=== PATIENT | female | born 1980 | race Two or more races ===

== ENCOUNTER 2020-04-06 08:43 | Emergency (ER) | payer OTHER ==
[~2020-04-06] VITALS: Ht 160 cm; Wt 74.8 kg
[~2020-04-06 08:43] MED LIST: IBUPROFEN800 MG PO
== END 2020-04-06 13:08 | disposition home or self-care (01) ==
LOC: ER 08:43
DX: K52.9 Noninfective gastroenteritis and colitis, unspecified (principal); Z03.818 Encounter for observation for suspected exposure to other biological agents ruled out

== ENCOUNTER 2020-04-19 07:30 | Outpatient (CLI) | payer OTHER | END 2020-04-19 08:10 | disposition home or self-care (01) | LOC: NUCLEAR 07:30 | PROVIDERS: ATTEND Emergency Medicine | DX: K80.20 Calculus of gallbladder without cholecystitis without obstruction (principal) | CPT/HCPCS: 78226; A9537 ==

== ENCOUNTER 2021-04-09 10:59 | Emergency (ER) | payer OTHER ==
[~2021-04-09] VITALS: Ht 160 cm; Wt 71.2 kg
== END 2021-04-09 14:29 | disposition home or self-care (01) ==
LOC: ER 10:59
DX: B34.9 Viral infection, unspecified (principal); Z11.52 Encounter for screening for COVID-19

== ENCOUNTER 2023-05-11 10:33 | Emergency (ER) | payer OTHER ==
[~2023-05-11] VITALS: Ht 160 cm; Wt 70.3 kg
[2023-05-11] MEDS ORDERED: 0.9 % SODIUM CHLORIDE 1,000 ML IV STA (11:13)
[2023-05-11] MEDS ORDERED: ONDANSETRON HCL 2 MG/ML VIAL IV STA (11:15)
[2023-05-11] MEDS ORDERED: FAMOtidine 10 MG/ML (4ML VIAL) IV STA (11:15)
[2023-05-11 11:53] LABS: URINE APPEARANCE Clear; URINE BILIRRUBIN Negative (NEGATIVE); URINE BLOOD Large; URINE COLOR Yellow; URINE GLUCOSE Negative (NEGATIVE); URINE LEUKOCYTE Negative; URINE NITRATE Negative; URINE PROTEIN Negative (NEGATIVE); URINE UROBILINOGEN 0.2 E.U./dl
[2023-05-11 11:54] LABS: URINE BACTERIA 28.9 uL (0.0-1933); URINE RBC 2807.8 uL (0.0-20.8); URINE WBC 2.9 uL (0.0-23.2)
[2023-05-11 11:56] LABS: URINE EPITHELIAL CELLS 0.9 uL (0.0-38.8)
[2023-05-11 12:01] LABS: HEMOGLOBIN 10.2 g/dL (12.0-15.00); MEAN CELL VOLUME 64.7 fL (80.00-100.00); MEAN CORPUSCULAR HEMOGLOBIN 20.7 pg (27.00-32.0); MEAN CORPUSCULAR HGB CONC 31.9 g/dl (32.0-36.0); PLATELET COUNT 374 K/uL (150-450); RED BLOOD COUNT 4.95 M/uL (4.00-6.00); RED CELL DISTRIBUTION WIDTH 18.9 % (11.5-14.5)
[2023-05-11 12:14] LABS: CALCIUM 9.2 mg/dL (8.5-10.1); CREATININE SERUM 0.62 mg/dL (0.55-1.02); GFR 104.09; POTASSIUM 4.06 mEq/L (3.5-5.1)
== END 2023-05-11 15:07 | disposition home or self-care (01) ==
LOC: ER 10:34
PROVIDERS: General Practice
DX: B34.9 Viral infection, unspecified (principal); R19.7 Diarrhea, unspecified